=== PATIENT | female | born 1960 | race Caucasian/White ===

== ENCOUNTER 2023-03-22 17:33 | Emergency (ER) | payer MEDICAID, OTHER ==
[~2023-03-22] VITALS: Ht 157.5 cm; Wt 87.1 kg
[2023-03-22 17:47] VITALS: BP 143/93; PULSE 108; RESP 16; TEMP 98; O2SAT 95
--- NOTE | 2023-03-22 18:07 | NUR ---
MD CORTEZ AT BEDSIDE FOR EVALUATION
[2023-03-22 18:15] VITALS: O2SAT 95
--- NOTE | 2023-03-22 18:15 | NUR ---
62YO FEMALE PT C/O MELISA LL SWELLING X3DAYS AND PRESSURED CHEST PAIN [id number]. REPORTS SUDDEN ONSET. CP W/O RADIATION. +1 PITTING MELISA LL SWELLING NOTED,TENDER TO TOUCH. DENIES N/V/D, SOB, FEVER,CHILLS OR TAKING MEDICATION. PT AAOX4, AMB W/ STEADY GAIT. ON AUTOMOBILE AND PROPERTY UNDERWRITER. HX: HTN,DIABETES, HLD, GERD, BIPOLAR NKA
[2023-03-22 18:28] LABS: BASOPHILS % (AUTO) 0.4 % (0.0-2.0); EOSINOPHILS # (AUTO) 0.1 K/uL (0-0.4); EOSINOPHILS % (AUTO) 1.6 % (0.0-4.0); HEMATOCRIT 36.2 % (36-48); HEMOGLOBIN 12.4 g/dL (12.0-16.0); LYMPHOCYTES # (AUTO) 2.2 K/uL (2.5-16.5); LYMPHOCYTES % (AUTO) 36.5 % (20.5-51.1); MEAN CORPUSCULAR HEMOGLOBIN 32 pg (27-31); MEAN CORPUSCULAR HGB CONC 34 g/dL (33-37); MEAN CORPUSCULAR VOLUME 92.5 fL (80-94); MONOCYTES # (AUTO) 0.5 K/uL (0.8-1.0); MONOCYTES % (AUTO) 8.5 % (1.7-9.3); NEUTROPHILS # (AUTO) 3.2 K/uL (1.8-7.7); PLATELET COUNT (AUTO) 164 K/uL (140-450); RED BLOOD CELL COUNT(AUTO) 3.92 MIL/uL (4.20-5.40); RED CELL DISTRIBUTION WIDTH 13.6 % (11.6-13.7); WHITE BLOOD COUNT (AUTO) 5.9 K/uL (4.8-10.8)
[2023-03-22 18:51] LABS: ALBUMIN 3.6 g/dL (3.4-5.0); ANION GAP 11.9 (8-16); CARBON DIOXIDE 27.5 mmol/L (21-32); CREATININE 0.7 mg/dL (0.6-1.3); POTASSIUM 3.4 mmol/L (3.5-5.1); TOTAL BILIRUBIN 0.6 mg/dL (0.0-1.0)
--- NOTE | 2023-03-22 19:17 | NUR ---
REPORT GIVEN TO BRAVO RUTHERFORD. TRANSFER OF CARE AT THIS TIME
[2023-03-22 19:47] VITALS: BP 120/75; PULSE 77; RESP 16; TEMP 98; O2SAT 99
--- NOTE | 2023-03-22 19:48 | NUR ---
pt resting on bed. not in distress. on monitor.
--- NOTE | 2023-03-22 20:27 | NUR ---
Dr. melinda brown evaluating the pt. Addendum: 03/22/23 at [email or web address] wolfgang brown evaluating the pt.
[2023-03-22] MEDS ORDERED: IBUP-2213 PO ×2 (20:33→20:42)
--- NOTE | 2023-03-22 20:48 | NUR ---
Patient discharged with v/s stable. Written and verbal after care instructions given and explained. Patient alert, oriented and verbalized understanding of instructions. Ambulatory with steady gait. All questions addressed prior to discharge. ID band removed. Patient advised to follow up with PMD. Rx of IBUPROFEN given. Opportunity to ask questions provided and answered.
== END 2023-03-22 20:48 | disposition home or self-care (01) ==
LOC: MED 17:33
DX: R07.89 Other chest pain (principal); R60.0 Localized edema; E11.9 Type 2 diabetes mellitus without complications; K21.9 Gastro-esophageal reflux disease without esophagitis; I10 Essential (primary) hypertension; F17.200 Nicotine dependence, unspecified, uncomplicated; Z71.6 Tobacco abuse counseling; Z90.710 Acquired absence of both cervix and uterus; Z79.1 Long term (current) use of non-steroidal anti-inflammatories (NSAID)
CPT/HCPCS: 36415; 71045; 80053; 83880; 84484; 85025; 93005; 93970; 99285; Q0092